=== PATIENT | female | born 1985 | race Caucasian/White ===

== ENCOUNTER 2016-11-15 17:58 | Emergency (ER) | payer MEDICAID ==
[~2016-11-15] VITALS: Ht 160 cm; Wt 90.5 kg
[~2016-11-15 17:58] MED LIST: PREN1CAP7 PO
[2016-11-15 17:59] VITALS: BP 136/75; PULSE 103; RESP 20; TEMP 99.5; O2SAT 97
--- NOTE | 2016-11-15 18:34 | PD ---
HPI Chief Complaint: Skin Problem Time Seen by Provider: 18:34 Travel History International Travel<30 days: No Contact w/Intl Traveler<30days: No Traveled to known affect area: No History of Present Illness HPI 31-year-old female 28 weeks presents to the emergency department for evaluation of right hand injury. Patient states that this morning while washing dishes her drain became clogged so she reached her hand into the water to try to unclog the drain and states that she was poked by something sharp in the right third finger. States that she thinks it was the sharp end of a steak knife. States that throughout the day today the pain has worsened and she has had worsening swelling in the third finger now extending to the hand and wrist. States that she has redness with warmth extending from the finger to the forearm. She denies any fever, chills, nausea, vomiting. States that she has had no vaginal bleeding or abdominal pain, states baby has had normal movement. Unknown last tetanus vaccination. No other complaints. PFSH Past Medical History Arthritis: Yes (RA) Asthma: Yes Autoimmune Disease: Yes (LUPUS) Diminished Hearing: No Immune Disorder: Yes (LUPUS) Musculoskeletal: Yes (ARTHROSCOPIC KNEE SURGERY) Reproductive: Yes (6CMx2.4X2.6 UTERUS LYOMA) Tetanus Vaccination: Unknown ?: LMP: 28 weeks : 6 Para: 2 Miscarriage: 3 : 1 Past Surgical History Abdominal Surgery: Yes Section: Yes (x5) Gynecologic Surgery: Yes Pacemaker: No Other Surgery: Yes Social History Alcohol Use: No Tobacco Use: No Substance Use: No Allergies-Medications (Allergen,Severity, Reaction): Coded Allergies: Ancef (Verified Allergy, Severe, 11/15/16) Clindamycin (Verified Allergy, Severe, Swelling, 11/15/16) Iodine (Verified Allergy, Severe, 11/15/16) Tramadol (Verified Allergy, Severe, RASH/HIVES, 11/15/16) Cipro (Verified Allergy, Intermediate, Swelling, 11/15/16) *MDRO Multi-Drug Resistant Organism (Verified Allergy, Unknown, 11/15/16) MRSA Rocephin (Verified Allergy, Unknown, 11/15/16) Prednisone (Verified Adverse Reaction, Intermediate, INCREASED HEART RATE AND BLOOD PRESSURE., 11/15/16) Reported Meds & Prescriptions Reported Meds & Active Scripts Active Citranatal [place] ( W/O Vit A W/ Fe Fumar) 27-1-260 Mg Cap 1 Cap PO DAILY Review of Systems Except as stated in HPI: all other systems reviewed are Neg Physical Exam Narrative GENERAL: Well-nourished and well-developed male patient in no acute distress who is nontoxic appearing. SKIN: Warm and dry. HEAD: Normocephalic and atraumatic. EYES: No injection, drainage, or hyphema noted. PERRLA. EOMI. ENT: No nasal drainage noted. Oropharynx is clear. NECK: Supple and the trachea is midline. CARDIOVASCULAR: Regular rate and rhythm. RESPIRATORY: Breath sounds are equal bilaterally with no accessory muscle use, wheezing, rhonchi, or crackles. GASTROINTESTINAL: Abdomen is soft, non-tender, and nondistended. EXTREMITY: Right hand third finger with pinpoint puncture wound to volar aspect just distal to PIP. There is mild erythema and swelling of the finger with tenderness to palpation. No red streaks. Full range of motion in all joints. No joint swelling/injury. Normal opposition of thumb. Distal extremity neurovascularly intact with intact two point discrimination. NEUROLOGICAL: Awake, alert, and oriented. Normal speech and gait. Cranial nerves are grossly intact. Data Data Last Documented VS Vital Signs Date Time Temp Pulse Resp B/P Pulse Ox O2 Delivery O2 Flow Rate FiO2 11/15/16 17:59 99.5 103 20 136/75 97 Room Air Orders Basic Metabolic Panel (Bmp) (11/15/16 18:32) Complete Blood Count With Diff (11/15/16 18:32) Iv Access Insert/Monitor (11/15/16 18:32) Acetaminophen (Tylenol) (11/15/16 18:45) Tetanus/Diphtheria Tox Adult (Tetanus/Di (11/15/16 18:45) Hand, Complete ([id number]) (11/15/16 18:34) Sulfamet-Trimeth Ds 800-160 Mg (Bactrim (11/15/16 20:00) Potassium Chloride Eff (K-Lyte Cl Eff) (11/15/16 20:15) Labs Laboratory Tests Test 11/15/16 18:40 White Blood Count 16.9 TH/MM3 Red Blood Count 3.81 MIL/MM3 Hemoglobin 10.1 GM/DL Hematocrit 31.2 % Mean Corpuscular Volume 82.0 FL Mean Corpuscular Hemoglobin 26.6 PG Mean Corpuscular Hemoglobin 32.4 % Concent Red Cell Distribution Width 14.2 % Platelet Count 250 TH/MM3 Mean Platelet Volume 8.6 FL Neutrophils (%) (Auto) 80.6 % Lymphocytes (%) (Auto) 13.3 % Monocytes (%) (Auto) 5.2 % Eosinophils (%) (Auto) 0.7 % Basophils (%) (Auto) 0.2 % Neutrophils # (Auto) 13.6 TH/MM3 Lymphocytes # (Auto) 2.2 TH/MM3 Monocytes # (Auto) 0.9 TH/MM3 Eosinophils # (Auto) 0.1 TH/MM3 Basophils # (Auto) 0.0 TH/MM3 CBC Comment DIFF FINAL Differential Comment Sodium Level 140 MEQ/L Potassium Level 3.2 MEQ/L Chloride Level 107 MEQ/L Carbon Dioxide Level 26.5 MEQ/L Anion Gap 7 MEQ/L Blood Urea Nitrogen 6 MG/DL Creatinine 0.47 MG/DL Estimat Glomerular Filtration 156 ML/MIN Rate Random Glucose 94 MG/DL Calcium Level 7.9 MG/DL MDM Medical Decision Making Medical Screen Exam Complete: Yes Emergency Medical Condition: Yes Differential Diagnosis Abrasion versus cellulitis versus puncture wound Narrative Course 31-year-old female who is 28 weeks presents to the emergency department for evaluation of right hand third finger injury with swelling and pain. Patient has temperature of 99.5F. She is tachycardic with a heart rate of 103 bpm. The finger is slightly swollen and erythematous extending to over the dorsal aspect of the hand but there is no lymphangitis or joint involvement. X-ray imaging as an ordered to rule out foreign body retention. Labs have been ordered. Patient administered Tylenol for pain. CBC shows an elevated white blood cell count 16.9, mild anemia with hemoglobin 10.1, hematocrit 31.2. BMP shows mild hypokalemia with a potassium of 3.2. X-ray of the right hand is negative for any acute abnormalities. Patient remained stable and without complaint while here in the emergency department. She'll be discharged with a prescription for Bactrim. Discussed that if her symptoms worsen she should return immediately to the emergency department. Patient verbalizes understanding and agreement with treatment plan. I discussed the case with my attending physician Dr. Turner who is aware of the patients history, physical examination findings, and treatment plan. Physician Communication Physician Communication I spoke with Dr. Chowdhury OB hospitalist on-call regarding the patient's presentation and her multiple drug allergies. She recommends the patient be prescribed Bactrim as it is only category C at this point in her . Diagnosis Primary Impression: Cellulitis Qualified Code: L03.011 - Cellulitis of finger of right hand Referrals: [facility] Patient Instructions: Cellulitis (ED), General Instructions Additional Instructions: Take medication as prescribed with food and a full glass of water. Follow-up with your PLASTICS AND COMPOSITES INSPECTOR/primary care provider. Return to the ED for any acute worsening of symptoms such as worsening swelling , redness, pain or fever. Med/Other Pt SpecificInfo: Prescription(s) given Disposition: 01 DISCHARGE HOME Condition: Stable Rosie Gill Nov 15, 2016 18:34
[2016-11-15] MEDS ORDERED: ACETAMINOPHEN 325 MG TAB PO ONE (18:45)
[2016-11-15] MEDS ORDERED: TETANUS/DIPHTHERIA TOXOID ADULT 0.5 ML VIAL IM ONE (18:45)
[2016-11-15 18:59] LABS: AUTOMATED NEUTROPHIL # 13.6 TH/MM3 (1.8-7.7); BASOPHIL % 0.2 % (0.0-2.0); EOSINOPHIL # 0.1 TH/MM3 (0-0.4); EOSINOPHIL % 0.7 % (0.0-4.0); HEMATOCRIT 31.2 % (35.0-46.0); HEMO FLAGS DIFF FINAL; LYMPH % 13.3 % (9.0-44.0); LYMPHOCYTE # 2.2 TH/MM3 (1.0-4.8); MEAN CORPUSCULAR HEMOGLOBIN 26.6 PG (27.0-34.0); MEAN CORPUSCULAR HGB CONC 32.4 % (32.0-36.0); MONO % 5.2 % (0.0-8.0); NEUT % 80.6 % (16.0-70.0); PLATELET COUNT 250 TH/MM3 (150-450); RED BLOOD COUNT 3.81 MIL/MM3 (4.00-5.30); RED CELL DISTRIBUTION WIDTH 14.2 % (11.6-17.2); WHITE BLOOD COUNT 16.9 TH/MM3 (4.0-11.0)
--- NOTE | 2016-11-15 19:13 | RADRPT ---
EXAM DATE/TIME: 11/15/2016 19:02 [facility] COMPARISON: No previous studies available for comparison. INDICATIONS : Right hand pain and swelling after cutting self with knife while doing dishes this morning. MEDICAL HISTORY : None. SURGICAL HISTORY : None. ENCOUNTER: Initial ACUITY: 1 day PAIN SCORE: 10/10 LOCATION: Right Hand. FINDINGS: No definite fractures, or dislocations are identified. No definite lytic or sclerotic lesion is seen . There is no evidence for a radiopaque foreign body for technique. CONCLUSION: Unremarkable study. Emely Don MD on November 15, 2016 at 19:11 Board Certified Radiologist. This report was verified electronically.
[2016-11-15 19:22] LABS: BICARBONATE 26.5 MEQ/L (21.0-32.0); POTASSIUM 3.2 MEQ/L (3.5-5.1)
[2016-11-15] MEDS ORDERED: SULFAMETHOXAZOLE-TRIMETHOPRIM DS 800-160 MG TAB PO ONE (20:00)
[2016-11-15] MEDS ORDERED: BACT800T5 PO (20:07)
[2016-11-15] MEDS ORDERED: POTASSIUM CHLORIDE 25 MEQ EFFERVESCENT TAB PO ONE (20:15)
[2016-12-05] MEDS ORDERED: ZANT150T2 PO (14:18)
== END 2016-11-15 20:53 | disposition home or self-care (01) ==
LOC: NEPC 17:58
DX: L03.011 Cellulitis of right finger (principal)
CPT/HCPCS: 73130; 80048; 85025; 99283

== ENCOUNTER 2016-11-20 20:47 | Emergency (ER) | payer MEDICAID ==
[~2016-11-20 20:47] MED LIST changes: +BACT800T5 PO
--- NOTE | 2016-11-20 21:43 | PD ---
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 Patient wanted to go to the main ER she started having chest pain associated with coughing and a low-grade fever. Symptoms have been present since Monday ,she is taken Tylenol. She states some decreased movement today so she was brought up for assessment before going to the main ed. No complications in the and her lupus is in remission at present time. Denies vaginal bleeding contractions or vaginal discharge. Para: 5 : 8 Miscarriage: 1 : 1 History Past Medical History Narrative Medical Lupus in remission Asthma under good control on albuterol Rheumatoid arthritis Obstetric History Obstetric History section 5, 2 prior classical sections History of twin Past Surgical History Narrative Surgical section Knee surgery Social History Alcohol Use: No Tobacco Use: No Substance Abuse: No Allergies-Medications (Allergen,Severity, Reaction): Coded Allergies: Ancef (Verified Allergy, Severe, 11/15/16) Clindamycin (Verified Allergy, Severe, Swelling, 11/15/16) Iodine (Verified Allergy, Severe, 11/15/16) Tramadol (Verified Allergy, Severe, RASH/HIVES, 11/15/16) Cipro (Verified Allergy, Intermediate, Swelling, 11/15/16) *MDRO Multi-Drug Resistant Organism (Verified Allergy, Unknown, 11/15/16) MRSA Rocephin (Verified Allergy, Unknown, 11/15/16) Prednisone (Verified Adverse Reaction, Intermediate, INCREASED HEART RATE AND BLOOD PRESSURE., 11/15/16) Home Meds Active Scripts Sulfamethoxazole-Trimethoprim (Bactrim DS)800-160 Mg Tab1 Tab PO BID #20 TAB Ref 0 Prov:Brad Turner MD 11/15/16 W/O Vit A W/ Fe Fumar (Citranatal [place])27-1-260 Mg Cap1 Cap PO DAILY #60 CAP Ref 3 Prov:Luz Elena Mcmanus CNM DESIGN ENGINEER [employer]MENT 11/03/16 Review of Systems General / Constitutional: Fever, Chills Cardiovascular: Chest Pain or Discomfort Respiratory: Cough Gastrointestinal: Nausea Physical Exam Narrative GENERAL: Well-nourished, well-developed patient. SKIN: Warm and dry. HEAD: Normocephalic and atraumatic. EYES: No scleral icterus. No injection or drainage. ENT: No nasal drainage noted. Mucous membranes pink. Airway patent. NECK: Supple, trachea midline. No JVD. CARDIOVASCULAR: Regular rate and rhythm without murmurs, gallops, or rubs. RESPIRATORY: Breath sounds equal bilaterally. No accessory muscle use. BREASTS: Bilateral exam showed no masses , no retractions, no nipple discharge. ABDOMEN/GI: Abdomen soft, non-tender, bowel sounds present, no rebound, no guarding Gravid to [-] weeks size Fundal Height: [-30] GENITOURINARY: Exam deferred Uterine Contractions: [Absent-] FHT's: Category: [1-] Baseline: 140 Reactive: Moderate Variability: Moderate Decels: Absent EXTREMITIES: No cyanosis or edema. BACK: Nontender without obvious deformity. No CVA tenderness. NEUROLOGICAL: Awake and alert. Motor and sensory grossly within normal limits. Five out of 5 muscle strength in all muscle groups. Normal speech. Data Data Vital Signs Reviewed: Yes MDM Plan 31-year-old female at 29 weeks gestation with complaints of decreased movement. Normal nonstress test with good movement since patient has arrived here. Respiratory symptoms with chest pain and coughing, patient would like further evaluation. Lungs appear to be clear to auscultation here with normal vital signs and 99% saturation We'll transfer to the main ED for continued evaluation Diagnosis Diagnosis: Primary Impression: Cough Additional Impressions: Chest discomfort Decreased movement affecting management of in third trimester 29 weeks gestation of Lupus anticoagulant affecting in third trimester, antepartum Maternal rheumatoid arthritis complicating Condition: Corrina Mojica MD Nov 20, 2016 21:42
[2016-11-20] MEDS ORDERED: ALBUAER3 INH (22:13)
[2016-12-05] MEDS ORDERED: ZANT150T2 PO (14:18)
== END 2016-11-21 | disposition home or self-care (01) ==
LOC: HOBED 20:47
DX: O99.513 Diseases of the respiratory system complicating pregnancy, third trimester (principal); R05 Cough; O36.8130 Decreased fetal movements, third trimester, not applicable or unspecified; O99.113 Other diseases of the blood and blood-forming organs and certain disorders involving the immune mechanism complicating pregnancy, third trimester; D68.62 Lupus anticoagulant syndrome; O99.89 Other specified diseases and conditions complicating pregnancy, childbirth and the puerperium; M06.9 Rheumatoid arthritis, unspecified; Z3A.29 29 weeks gestation of pregnancy
CPT/HCPCS: 99284

== ENCOUNTER 2016-12-19 14:09 | Emergency (ER) | payer MEDICAID ==
[~2016-12-19] VITALS: Ht 160 cm; Wt 93.0 kg
[~2016-12-19 14:09] MED LIST changes: +ALBUAER3 INH; -BACT800T5 PO; +ZANT150T2 PO
[2016-12-19 14:11] VITALS: BP 123/71; PULSE 106; RESP 17; TEMP 98.6; O2SAT 97
--- NOTE | 2016-12-19 14:21 | PD ---
Physical Exam Time Seen by Provider: 14:15 Narrative 31yo, 32 weeks , F c/o chest pain x1 week with cough, SOB, feeling of drowning when she lays down. Hx of asthma and albuterol not working. Excessive mucous production. Throwing up blood last night. Reports fever at beginning of illness, not recent illness. Reports abd cramping only when she coughs. Denies vag bleeding. Baby is moving normally. Called OB and said clear medically. Patient stable. Patient seen in triage. Awaiting bed placement. Data Data Last Documented VS Vital Signs Date Time Temp Pulse Resp B/P Pulse Ox O2 Delivery O2 Flow Rate FiO2 12/19/16 14:11 98.6 106 17 123/71 97 MDM Supervised Visit with VINCENT: Rosie Boston Dec 19, 2016 14:21
[2016-12-19] MEDS ORDERED: SODIUM CHLOR 0.9% 1000 ML INJ 1,000 ML IV ONE (15:00)
[2016-12-19] MEDS ORDERED: ONDANSETRON HCL 4 MG/2 ML VIAL IVP ONE (15:00)
[2016-12-19] MEDS ORDERED: methylPREDNISolone SOD SUCC 125 MG/2 ML VIAL IVP ONE (15:00)
[2016-12-19] MEDS ORDERED: SODIUM CHLORIDE 0.9% FLUSH 10 ML FLUSH IVF PRN (15:00)
[2016-12-19] MEDS ORDERED: METOCLOPRAMIDE HCL 10 MG/2 ML VIAL IV PUSH ONE (15:45)
[2016-12-19 15:49] LABS: AUTOMATED NEUTROPHIL # 8.4 TH/MM3 (1.8-7.7); BASOPHIL % 0.4 % (0.0-2.0); EOSINOPHIL # 0.1 TH/MM3 (0-0.4); EOSINOPHIL % 0.7 % (0.0-4.0); HEMATOCRIT 33.1 % (35.0-46.0); HEMO FLAGS DIFF FINAL; LYMPH % 18.5 % (9.0-44.0); LYMPHOCYTE # 2.1 TH/MM3 (1.0-4.8); MEAN CELL VOLUME 79.8 FL (80.0-100.0); MEAN CORPUSCULAR HEMOGLOBIN 26.5 PG (27.0-34.0); MEAN CORPUSCULAR HGB CONC 33.2 % (32.0-36.0); MONO % 6.3 % (0.0-8.0); NEUT % 74.1 % (16.0-70.0); PLATELET COUNT 265 TH/MM3 (150-450); RED BLOOD COUNT 4.15 MIL/MM3 (4.00-5.30); RED CELL DISTRIBUTION WIDTH 14.3 % (11.6-17.2); WHITE BLOOD COUNT 11.3 TH/MM3 (4.0-11.0)
--- NOTE | 2016-12-19 16:04 | PD ---
HPI Chief Complaint: Cold / Flu Symptoms Time Seen by Provider: 15:00 Travel History International Travel<30 days: No Contact w/Intl Traveler<30days: No Traveled to known affect area: No History of Present Illness HPI Patient is a 31-year-old female presenting to the emergency room for evaluation of chest congestion, posttussive emesis, green clear sputum. Patient reports a history of asthma, she denies any fevers, chills, headache, chest pain, abdominal pain, diarrhea. Patient is 33 weeks , she's had no vaginal bleeding, abdominal cramping, urinary complaints. Patient can feel her baby moving. Has been utilizing her albuterol inhaler and taking cough medicine over -the-counter. She states that she stopped all of this last night because it wasn't helping and decided to come to emergency department today. PFSH Past Medical History Medical History: Denies Significant Hx Arthritis: Yes (RA) Asthma: Yes Autoimmune Disease: Yes (LUPUS) Diminished Hearing: No Immune Disorder: Yes (LUPUS) Musculoskeletal: Yes (ARTHROSCOPIC KNEE SURGERY) Reproductive: Yes (6CMx2.4X2.6 UTERUS LYOMA) ?: : 7 Para: 6 Miscarriage: 3 : 1 Past Surgical History Abdominal Surgery: Yes Section: Yes (x5) Gynecologic Surgery: Yes Pacemaker: No Other Surgery: Yes Social History Alcohol Use: No Tobacco Use: No Substance Use: No Allergies-Medications (Allergen,Severity, Reaction): Coded Allergies: Ancef (Verified Allergy, Severe, 12/19/16) Clindamycin (Verified Allergy, Severe, Swelling, 12/19/16) Iodine (Verified Allergy, Severe, 12/19/16) Tramadol (Verified Allergy, Severe, RASH/HIVES, 12/19/16) Cipro (Verified Allergy, Intermediate, Swelling, 12/19/16) *MDRO Multi-Drug Resistant Organism (Verified Allergy, Unknown, 12/19/16) MRSA Rocephin (Verified Allergy, Unknown, 12/19/16) Prednisone (Verified Adverse Reaction, Intermediate, INCREASED HEART RATE AND BLOOD PRESSURE., 12/19/16) Reported Meds & Prescriptions Reported Meds & Active Scripts Active Zantac (Ranitidine HCl) 150 Mg Tab 150 Mg PO BID Citranatal [place] ( W/O Vit A W/ Fe Fumar) 27-1-260 Mg Cap 1 Cap PO DAILY Reported Proair Hfa 8.5 GM Inh (Albuterol Sulfate) 90 Mcg/Act Aer 2 Puff INH Q4-6H PRN 108 mcg/actuation Review of Systems Except as stated in HPI: all other systems reviewed are Neg General / Constitutional: No: Fever, Chills Respiratory: Positive: Cough, Shortness of Breath, Wheezing Gastrointestinal: Positive: Nausea, Vomiting, No: Abdominal Pain Genitourinary: No: Pelvic Pain, Discharge, Vaginal Bleeding Physical Exam Narrative GENERAL: Well developed, well-nourished, alert female. Resting comfortably in no acute distress. SKIN: Focused skin assessment warm/dry. HEAD: Atraumatic. Normocephalic. EYES: Pupils equal and round. No scleral icterus. No injection or drainage. ENT: No nasal bleeding or discharge. Mucous membranes pink and moist. NECK: Trachea midline. No JVD. CARDIOVASCULAR: Regular rate and rhythm. No murmur appreciated. RESPIRATORY: No accessory muscle use. Breath sounds significantly diminished in bases, wheezing and upper lung dennis. GASTROINTESTINAL: Abdomen soft, non-tender, nondistended. Hepatic and splenic margins not palpable. MUSCULOSKELETAL: No obvious deformities. No clubbing. No cyanosis. No edema. NEUROLOGICAL: Awake and alert. No obvious cranial nerve deficits. Motor grossly within normal limits. Normal speech. PSYCHIATRIC: Appropriate mood and affect; insight and judgment normal. Data Data Last Documented VS Vital Signs Date Time Temp Pulse Resp B/P Pulse Ox O2 Delivery O2 Flow Rate FiO2 12/19/16 16:43 Room Air 12/19/16 16:42 99.1 93 16 109/61 100 12/19/16 16:07 21 Orders Complete Blood Count With Diff (12/19/16 14:58) Comprehensive Metabolic Panel (12/19/16 14:58) Ecg Monitoring (12/19/16 14:58) Iv Access Insert/Monitor (12/19/16 14:58) Oximetry (12/19/16 14:58) Oxygen Administration (12/19/16 14:58) Methylprednisolone So Succ Inj (Solumedr (12/19/16 15:00) Ondansetron Inj (Zofran Inj) (12/19/16 15:00) Albuterol-Ipratropium Neb (Duoneb Neb) (12/19/16 15:00) Sodium Chloride 0.9% Flush (Ns Flush) (12/19/16 15:00) Sodium Chlor 0.9% 1000 Ml Inj (Ns 1000 M (12/19/16 15:00) Metoclopramide Inj (Reglan Inj) (12/19/16 15:45) Azithromycin (Zithromax) (12/19/16 17:15) Labs Laboratory Tests Test 12/19/16 15:20 White Blood Count 11.3 TH/MM3 Red Blood Count 4.15 MIL/MM3 Hemoglobin 11.0 GM/DL Hematocrit 33.1 % Mean Corpuscular Volume 79.8 FL Mean Corpuscular Hemoglobin 26.5 PG Mean Corpuscular Hemoglobin 33.2 % Concent Red Cell Distribution Width 14.3 % Platelet Count 265 TH/MM3 Mean Platelet Volume 9.3 FL Neutrophils (%) (Auto) 74.1 % Lymphocytes (%) (Auto) 18.5 % Monocytes (%) (Auto) 6.3 % Eosinophils (%) (Auto) 0.7 % Basophils (%) (Auto) 0.4 % Neutrophils # (Auto) 8.4 TH/MM3 Lymphocytes # (Auto) 2.1 TH/MM3 Monocytes # (Auto) 0.7 TH/MM3 Eosinophils # (Auto) 0.1 TH/MM3 Basophils # (Auto) 0.0 TH/MM3 CBC Comment DIFF FINAL Differential Comment Sodium Level 137 MEQ/L Potassium Level 3.7 MEQ/L Chloride Level 105 MEQ/L Carbon Dioxide Level 24.7 MEQ/L Anion Gap 7 MEQ/L Blood Urea Nitrogen 5 MG/DL Creatinine 0.53 MG/DL Estimat Glomerular Filtration 135 ML/MIN Rate Random Glucose 67 MG/DL Calcium Level 8.0 MG/DL Total Bilirubin 0.3 MG/DL Aspartate Amino Transf 27 U/L (AST/SGOT) Alanine Aminotransferase 12 U/L (ALT/SGPT) Alkaline Phosphatase 108 U/L Total Protein 7.0 GM/DL Albumin 2.7 GM/DL MDM Medical Decision Making Medical Screen Exam Complete: Yes Emergency Medical Condition: Yes Interpretation(s) Viral URI versus asthma exacerbation versus bronchitis versus pneumonia versus other Differential Diagnosis Patient's a 31-year-old female presenting to emergency evaluation of cough and chest congestion 1 week. Patient has a history of asthma and has been utilizing an albuterol inhaler. On presentation her vital signs are stable, she is mildly tachycardic with a rate of 105. Labs ordered and pending. Patient has a documented allergy to prednisone however when questioned she states that she has had Solu-Medrol and has had a reaction to it. DuoNeb 3, Solu-Medrol ordered. Patient will be started on antibiotics empirically. She was given nausea medication. Narrative Course Patient is a 31-year-old female presenting to the emergency department for evaluation of upper respiratory symptoms week. Patient's vital signs are stable , labs ordered and pending, medications ordered and pending. Patient is currently with no related complaints today. Deferred chest x-ray due to . Patient had listed prednisone as an allergy, she has had no reaction to Solu-Medrol in the emergency department today she was given 3 DuoNeb treatments and reports improvement in her breathing. CBC is unremarkable, chemistries unremarkable. Patient will be discharged home with antibiotics as well as DuoNeb nebulizer treatments. He is advised to follow-up with her primary doctor as well as her AGRICULTURAL AGENT. She is advised to return to emergency department immediately for any new or worsening symptoms. Patient verbalized understanding of these instructions. Patient is stable for discharge. Diagnosis Primary Impression: Acute asthma exacerbation Qualified Code: J45.901 - Asthma with acute exacerbation, unspecified asthma severity Referrals: Plant Production Worker Primary Care Physician Patient Instructions: Asthma (ED), General Instructions Additional Instructions: Follow-up with your primary doctor and machine taper Take medications as directed Returned to emergency department for any new or worsening symptoms Med/Other Pt SpecificInfo: Prescription(s) given Scripts Ipratropium-Albuterol Neb (Duoneb)0.5-2.5 Mg/3 Ml Neb1 Nebule INH Q4HR NEB PRN ( SOB/WHEEZING) 10 Days Ref 0 Prov:Josette Chavarria 12/19/16 Azithromycin 250 Mg [id number] Mg PO DAILY 4 Days Ref 0 Prov:Josette Chavarria 12/19/16 Disposition: 01 DISCHARGE HOME Condition: Stable Josette Chavarria Dec 19, 2016 16:04
[2016-12-19 16:07] VITALS: O2SAT 100
[2016-12-19] MEDS: RESP: ALBUTEROL 2.5 MG/IPRATROPIUM 0.5 MG NEB (SCH) INH (16:11)
[2016-12-19 16:23] LABS: ALKALINE PHOSPHATASE 108 U/L (45-117); ALT (GPT) 12 U/L (10-53); ANION GAP 7 MEQ/L (5-15); AST (GOT) 27 U/L (15-37); BICARBONATE 24.7 MEQ/L (21.0-32.0); BLOOD UREA NITROGEN 5 MG/DL (7-18); CHLORIDE 105 MEQ/L (98-107); GLOMERULAR FILTRATION RATE 135 ML/MIN (>89); POTASSIUM 3.7 MEQ/L (3.5-5.1); SODIUM (NA) 137 MEQ/L (136-145); TOTAL BILIRUBIN ADULT 0.3 MG/DL (0.2-1.0)
[2016-12-19 16:35] VITALS: O2SAT 97
[2016-12-19 16:42] VITALS: BP 109/61; PULSE 93; RESP 16; TEMP 99.1; O2SAT 100
--- NOTE | 2016-12-19 16:45 | PD ---
Data Data Last Documented VS Vital Signs Date Time Temp Pulse Resp B/P Pulse Ox O2 Delivery O2 Flow Rate FiO2 12/19/16 16:42 99.1 93 16 109/61 100 Room Air 12/19/16 16:07 21 Orders Complete Blood Count With Diff (12/19/16 14:58) Comprehensive Metabolic Panel (12/19/16 14:58) Ecg Monitoring (12/19/16 14:58) Iv Access Insert/Monitor (12/19/16 14:58) Oximetry (12/19/16 14:58) Oxygen Administration (12/19/16 14:58) Methylprednisolone So Succ Inj (Solumedr (12/19/16 15:00) Ondansetron Inj (Zofran Inj) (12/19/16 15:00) Albuterol-Ipratropium Neb (Duoneb Neb) (12/19/16 15:00) Sodium Chloride 0.9% Flush (Ns Flush) (12/19/16 15:00) Sodium Chlor 0.9% 1000 Ml Inj (Ns 1000 M (12/19/16 15:00) Metoclopramide Inj (Reglan Inj) (12/19/16 15:45) Labs Laboratory Tests Test 12/19/16 15:20 White Blood Count 11.3 TH/MM3 Red Blood Count 4.15 MIL/MM3 Hemoglobin 11.0 GM/DL Hematocrit 33.1 % Mean Corpuscular Volume 79.8 FL Mean Corpuscular Hemoglobin 26.5 PG Mean Corpuscular Hemoglobin 33.2 % Concent Red Cell Distribution Width 14.3 % Platelet Count 265 TH/MM3 Mean Platelet Volume 9.3 FL Neutrophils (%) (Auto) 74.1 % Lymphocytes (%) (Auto) 18.5 % Monocytes (%) (Auto) 6.3 % Eosinophils (%) (Auto) 0.7 % Basophils (%) (Auto) 0.4 % Neutrophils # (Auto) 8.4 TH/MM3 Lymphocytes # (Auto) 2.1 TH/MM3 Monocytes # (Auto) 0.7 TH/MM3 Eosinophils # (Auto) 0.1 TH/MM3 Basophils # (Auto) 0.0 TH/MM3 CBC Comment DIFF FINAL Differential Comment Sodium Level 137 MEQ/L Potassium Level 3.7 MEQ/L Chloride Level 105 MEQ/L Carbon Dioxide Level 24.7 MEQ/L Anion Gap 7 MEQ/L Blood Urea Nitrogen 5 MG/DL Creatinine 0.53 MG/DL Estimat Glomerular Filtration 135 ML/MIN Rate Random Glucose 67 MG/DL Calcium Level 8.0 MG/DL Total Bilirubin 0.3 MG/DL Aspartate Amino Transf 27 U/L (AST/SGOT) Alanine Aminotransferase 12 U/L (ALT/SGPT) Alkaline Phosphatase 108 U/L Total Protein 7.0 GM/DL Albumin 2.7 GM/DL MDM Supervised Visit with VINCENT: Yes Narrative Course The history, exam, and medical decision-making in the associated mid-level provider note were completed with my assistance. I reviewed and agree with the findings presented. I attest that I had a [id number] encounter with the patient on the same day, and personally performed and documented my assessment and findings in the medical record. *My assessment and Findings: 31-year-old woman, 33 weeks , URI symptoms for the past week. History of asthma. Looks well. She does a lot of wheezing but she has some shallow breathing. I don't see any evidence of lower [place] edema or DVT. No symptoms strongly suggestive of PE. She looks well. She does have some tightness. We'll treat for asthma exacerbation. She's had some adverse reaction to prednisone in the past with tachycardia and cardiac symptoms. She does well with the Solu-Medrol. We'll discharge her on Decadron. Recommend close follow-up with her OB. Yayo Vasquez MD Dec 19, 2016 16:45
[2016-12-19] MEDS ORDERED: AZITHROMYCIN 250 MG TAB PO ONE (17:15)
[2016-12-19] MEDS ORDERED: IPRASOL INH (17:19)
[2016-12-19] MEDS ORDERED: AZIT250T3 PO (17:19)
== END 2016-12-19 17:49 | disposition home or self-care (01) ==
LOC: NEPD 14:09
DX: O26.93 Pregnancy related conditions, unspecified, third trimester (principal); J45.901 Unspecified asthma with (acute) exacerbation; Z3A.33 33 weeks gestation of pregnancy; M06.9 Rheumatoid arthritis, unspecified
CPT/HCPCS: 80053; 85025; 94640; 94664; 96361; 96374; 96375; 99283; J2405; J2765; J2930; J7030

== ENCOUNTER 2017-01-15 23:08 | Emergency (ER) | payer MEDICAID ==
[~2017-01-15 23:08] MED LIST changes: +AZIT250T3 PO; +IPRASOL INH
[2017-01-16 00:20] LABS: BLOOD, URINE NEG (NEG); CALCIUM OXALATE CRYSTALS,URINE OCC /hpf; COMMENT (UR) CULT NOT INDICATED; CULTURE IF INDICATED CULT NOT INDICATED; GLUCOSE,URINE NEG (NEG); KETONE, URINE NEG (NEG); MUCUS URINE FEW /lpf (OCC); NITRITE,URINE NEG (NEG); SQUAMOUS EPITHELIAL CELL URINE <1 /hpf (0-5); URINE COLOR YELLOW (YELLW/STRAW)
--- NOTE | 2017-01-16 00:39 | PD ---
HPI Chief Complaint contractions Date Seen: January 16, 2017 Travel History International Travel<30 Days: No Contact w/Intl Traveler<30Days: No Known Affected Area: No History of Present Illness HPI This is a 31y/o at 36w4d who presents to the [facility] with c/o contractions since 9pm. She denies vaginal bleeding or leakage of fluid with reports of active movements. care with [facility], records reviewed, complicated by: 1. late entry to care at 26w 2. h/o 5 previous c/s (1st TIUP) 3. h/o Lupus, in "remission" 4. Asthma, recent prednisone use 2 weeks ago 5. young multigravida, has not signed state tubal consent form Para: 6 : 8 History Past Medical History Narrative Medical h/o Lupus in remission Asthma, recent prednisone use Obstetric History Obstetric History 5 previous c/s 1st c/s for TIUP Family History Family History: Negative Social History Alcohol Use: No Tobacco Use: No Substance Abuse: No Allergies-Medications (Allergen,Severity, Reaction): Coded Allergies: Ancef (Verified Allergy, Severe, 12/19/16) Clindamycin (Verified Allergy, Severe, Swelling, 12/19/16) Iodine (Verified Allergy, Severe, 12/19/16) Tramadol (Verified Allergy, Severe, RASH/HIVES, 12/19/16) Cipro (Verified Allergy, Intermediate, Swelling, 12/19/16) *MDRO Multi-Drug Resistant Organism (Verified Allergy, Unknown, 12/19/16) MRSA Rocephin (Verified Allergy, Unknown, 12/19/16) Prednisone (Verified Adverse Reaction, Intermediate, INCREASED HEART RATE AND BLOOD PRESSURE., 12/19/16) Home Meds Active Scripts Ipratropium-Albuterol Neb (Duoneb)0.5-2.5 Mg/3 Ml Neb1 Nebule INH Q4HR NEB PRN ( SOB/WHEEZING) 10 Days Ref 0 Prov:Josette Chavarria 12/19/16 Azithromycin 250 Mg [id number] Mg PO DAILY 4 Days Ref 0 Prov:Josette Chavarria 12/19/16 Ranitidine (Zantac)150 Mg [id number] Mg PO BID #60 TAB Ref 5 Prov:Yoana Reyes 12/05/16 W/O Vit A W/ Fe Fumar (Citranatal [place])27-1-260 Mg Cap1 Cap PO DAILY #60 CAP Ref 3 Prov:Luz Elena Mcmanus CNM ASSOCIATE EDITOR 11/03/16 Reported Medications Albuterol 8.5 GM Inh (Proair Hfa 8.5 GM Inh)90 Mcg/Act Aer2 Puff INH Q4-6H PRN ( SHORTNESS OF BREATH) #1 INHALER Ref 0 108 mcg/actuation 11/20/16 Review of Systems Except as stated in HPI: all other systems reviewed are Neg Physical Exam Narrative GENERAL: Well-nourished, well-developed patient. SKIN: Warm and dry. HEAD: Normocephalic and atraumatic. EYES: No scleral icterus. No injection or drainage. ENT: No nasal drainage noted. Mucous membranes pink. Airway patent. NECK: Supple, trachea midline. No JVD. CARDIOVASCULAR: Regular rate and rhythm without murmurs, gallops, or rubs. RESPIRATORY: Breath sounds equal bilaterally. No accessory muscle use. BREASTS: Bilateral exam showed no masses , no retractions, no nipple discharge. ABDOMEN/GI: Abdomen soft, non-tender, bowel sounds present, no rebound, no guarding Gravid to 38 weeks size GENITOURINARY: External Genitalia: intact and normal in appearance Cervix: c/s/p Uterine Contractions: few FHT's: Category: 1 EXTREMITIES: No cyanosis or edema. BACK: Nontender without obvious deformity. No CVA tenderness. NEUROLOGICAL: Awake and alert. Motor and sensory grossly within normal limits. Five out of 5 muscle strength in all muscle groups. Normal speech. Data Data Vital Signs Reviewed: Yes Orders Vital Signs (Adult) .ON ADMISSION (01/16/17 00:03) ^ Labor Status (01/16/17 00:03) Urinalysis - C+S If Indicated (01/16/17 00:03) ^ Non Stress Test (01/16/17 00:03) Labs Laboratory Tests Test 01/15/17 23:30 Urine Color YELLOW Urine Turbidity CLEAR Urine pH 7.0 Urine Specific [place] 1.021 Urine Protein TRACE Urine Glucose (UA) NEG Urine Ketones NEG Urine Occult Blood NEG Urine Nitrite NEG Urine Bilirubin NEG Urine Urobilinogen LESS THAN 2.0 Urine Leukocyte Esterase NEG Urine RBC LESS THAN 1 Urine WBC LESS THAN 1 Urine Squamous Epithelial <1 Cells Urine Calcium Oxalate Crystals OCC Urine Mucus FEW Microscopic Urinalysis Comment CULT NOT INDICATED MDM Medical Record Reviewed: Yes Interpretation(s) 31y/o at 36w4d with 5 previous c/s. -no evidence of labor -reassuring status -discussed c/s in depth, risks including but not limited to: infection, bleeding , bowel/bladder injury, injury to fetus, wound infection/separation -will call pt with c/s date tomorrow. Plan -d/c home -f/u for routine care tomorrow as scheduled Diagnosis Diagnosis: Primary Impression: Previous delivery affecting Additional Impression: 36 weeks gestation of Disposition: DISCHARGE HOME Patient Instructions: Abdominal Pain in (ED) Virginia Ferro MD January 16, 2017 00:39
== END 2017-01-16 00:50 | disposition home or self-care (01) ==
LOC: HOBED 23:08
DX: O26.893 Other specified pregnancy related conditions, third trimester (principal); Z3A.36 36 weeks gestation of pregnancy
CPT/HCPCS: 81001; 99284

== ENCOUNTER 2017-01-18 10:28 | Inpatient (IN) | payer MEDICAID ==
[~2017-01-18] VITALS: Ht 157.5 cm; Wt 95.3 kg
[~2017-01-18 10:28] MED LIST changes: -AZIT250T3 PO; -ZANT150T2 PO
[2017-01-18 11:31] LABS: AUTOMATED NEUTROPHIL # 7.5 TH/MM3 (1.8-7.7); BASOPHIL % 0.3 % (0.0-2.0); EOSINOPHIL # 0.1 TH/MM3 (0-0.4); EOSINOPHIL % 0.9 % (0.0-4.0); HEMATOCRIT 31.7 % (35.0-46.0); HEMO FLAGS DIFF FINAL; LYMPH % 22.3 % (9.0-44.0); LYMPHOCYTE # 2.4 TH/MM3 (1.0-4.8); MEAN CELL VOLUME 78.2 FL (80.0-100.0); MEAN CORPUSCULAR HEMOGLOBIN 25.8 PG (27.0-34.0); MONO % 7.8 % (0.0-8.0); NEUT % 68.7 % (16.0-70.0); PLATELET COUNT 234 TH/MM3 (150-450); RED BLOOD COUNT 4.05 MIL/MM3 (4.00-5.30); WHITE BLOOD COUNT 10.9 TH/MM3 (4.0-11.0)
[2017-01-18 11:37] LABS: BACTERIA, URINE RARE /hpf; BLOOD, URINE NEG (NEG); GLUCOSE,URINE NEG (NEG); KETONE, URINE NEG (NEG); MUCUS URINE FEW /lpf (OCC); NITRITE,URINE NEG (NEG); PH, URINE 6.5 (5.0-8.5); SQUAMOUS EPITHELIAL CELL URINE 3 /hpf (0-5); URINE COLOR YELLOW (YELLW/STRAW)
[2017-01-18 11:38] LABS: COMMENT (UR) CULT NOT INDICATED; CULTURE IF INDICATED CULT NOT INDICATED
[2017-01-18] MEDS ORDERED: LACTATED RINGER'S 1000 ML INJ 1,000 ML IV ONE (12:21)
[2017-01-18] MEDS ORDERED: AMPICILLIN INJ 2,000 MG in SODIUM CHLORIDE 0.9% INJ 100 ML IV ONE (12:30)
[2017-01-18] MEDS ORDERED: GENTAMICIN INJ 120 MG in SODIUM CHLORIDE 0.9% INJ 100 ML IV ONE (12:30)
[2017-01-18] MEDS ORDERED: LACTATED RINGER'S 1000 ML INJ 1,000 ML IV SCH ×2 (12:51→19:21)
[2017-01-18] MEDS ORDERED: HYDROCORTISONE SOD SUCCINATE 100 MG VIAL IV ONE (13:00)
[2017-01-18] MEDS ORDERED: ONDANSETRON HCL 4 MG/2 ML VIAL ONE (13:13)
[2017-01-18] MEDS ORDERED: MORPHINE SULFATE PF 5 MG/10 ML VIAL ONE (13:13)
[2017-01-18 13:20] LABS: AMPHETAMINE, URINE NEG (NEG); BARBITURATES, URINE NEG (NEG); COCAINE, URINE NEG (NEG)
[2017-01-18] MEDS ORDERED: CITRIC ACID-SODIUM CITRATE LIQ 30 ML UDC PO SCH (14:00)
[2017-01-18 14:25] VITALS: BP 105/53; PULSE 98; RESP 16; TEMP 98.7; O2SAT 100
--- NOTE | 2017-01-18 14:27 | PD.OB.DELI ---
Procedure Note Section Procedure Pre Op Diagnosis: (1) Lupus (2) Maternal rheumatoid arthritis complicating (3) Previous delivery affecting (4) History of classical section (5) 37 weeks gestation of Pre Op Diagnosis 4cm uterine window separation Post Op Diagnosis: Performed by Corrina Shin Procedure: Repeat Low Transverse Sec Indication for delivery: Desired elective repeat Informed consent obtained: For anesthesia, For procedure Confirmed correct: Time-out taken Anesthesia: Spinal Medication prior to procedure: Antacids, Antibiotics, IV Monitoring during procedure: Blood pressure monitoring, Pulse oximetry Urinary catheter: Inserted using sterile technique, To dependent drainage Sterile preparation: Duraprep Position: Supine with wedge to left side Operative Features Skin Incision: Pfannenstiel Uterine Incision: Low transverse w/knife / blunt ext Membranes Ruptured: Amount of liquid (copious), Appearance of fluid (clear) Presentation: Occiput posterior Time of : 13:48 Delivery of : Uneventful (Due to polyhydramnios vacuum assistance required to deliver head) Infant: Male One Minute : 9 Five Minute : 9 Weight: 2869gms Status of infant: Viable Placenta delivered: Intact Maternal Condition: Stable Condition: Stable Corrina Shin MD January 18, 2017 14:27
[2017-01-18] MEDS ORDERED: ACETAMINOPHEN 325 MG TAB PO PRN (14:30)
[2017-01-18] MEDS ORDERED: fentaNYL CITRATE 250 MCG/5 ML AMP ONE (14:30)
[2017-01-18] MEDS ORDERED: ZOLPIDEM TARTRATE 5 MG TAB PO PRN (14:30)
[2017-01-18] MEDS ORDERED: OXYTOCIN 30 UNITS-500ML PREMIX 500 ML IV ONE (14:30)
[2017-01-18] MEDS ORDERED: oxyCODONE/ACETAMINOPHEN 5 MG/325 MG TAB PO PRN (14:30)
[2017-01-18] MEDS ORDERED: SODIUM CHLORIDE 0.9% FLUSH 10 ML FLUSH IV FLUSH PRN (14:30)
--- NOTE | 2017-01-18 14:35 | HHI.HP ---
History & Physical H&P care with [facility], records reviewed, complicated by: 1. late entry to care at 26w 2. h/o 5 previous c/s (1st TIUP) 3. h/o Lupus, in "remission" 4. Asthma, recent prednisone use 2 weeks ago 5. young multigravida, has not signed state tubal consent form Para: 6 : 8 History Past Medical History Narrative Medical h/o Lupus in remission Asthma, recent prednisone use Obstetric History Obstetric History 5 previous c/s 1st c/s for TIUP Family History Family History: Negative Social History Alcohol Use: No Tobacco Use: No Substance Abuse: No Allergies-Medications (Allergen,Severity, Reaction): Coded Allergies: Ancef (Verified Allergy, Severe, 12/19/16) Clindamycin (Verified Allergy, Severe, Swelling, 12/19/16) Iodine (Verified Allergy, Severe, 12/19/16) Tramadol (Verified Allergy, Severe, RASH/HIVES, 12/19/16) Cipro (Verified Allergy, Intermediate, Swelling, 12/19/16) *MDRO Multi-Drug Resistant Organism (Verified Allergy, Unknown, 12/19/16) MRSA Rocephin (Verified Allergy, Unknown, 12/19/16) Prednisone (Verified Adverse Reaction, Intermediate, INCREASED HEART RATE AND BLOOD PRESSURE., 12/19/16) Home Meds Active Scripts Ipratropium-Albuterol Neb (Duoneb)0.5-2.5 Mg/3 Ml Neb1 Nebule INH Q4HR NEB PRN ( SOB/WHEEZING) 10 Days Ref 0 Prov:Josette Chavarria CORROSION CONTROL SPECIALIST 12/19/16 Azithromycin 250 Mg [id number] Mg PO DAILY 4 Days Ref 0 Prov:Josette Chavarria [facility] 12/19/16 Ranitidine (Zantac)150 Mg [id number] Mg PO BID #60 TAB Ref 5 Prov:Yoana ReyesP 12/05/16 W/O Vit A W/ Fe Fumar (Citranatal [place])27-1-260 Mg Cap1 Cap PO DAILY #60 CAP Ref 3 Prov:Luz Elena Mcmanus CNM CORROSION CONTROL SPECIALIST 11/03/16 Reported Medications Albuterol 8.5 GM Inh (Proair Hfa 8.5 GM Inh)90 Mcg/Act Aer2 Puff INH Q4-6H PRN ( SHORTNESS OF BREATH) #1 INHALER Ref 0 108 mcg/actuation 11/20/16 Review of Systems Except as stated in HPI: all other systems reviewed are Neg Physical Exam Narrative GENERAL: Well-nourished, well-developed patient. SKIN: Warm and dry. HEAD: Normocephalic and atraumatic. EYES: No scleral icterus. No injection or drainage. ENT: No nasal drainage noted. Mucous membranes pink. Airway patent. NECK: Supple, trachea midline. No JVD. CARDIOVASCULAR: Regular rate and rhythm without murmurs, gallops, or rubs. RESPIRATORY: Breath sounds equal bilaterally. No accessory muscle use. BREASTS: Bilateral exam showed no masses , no retractions, no nipple discharge. ABDOMEN/GI: Abdomen soft, non-tender, bowel sounds present, no rebound, no guarding Gravid to 38 weeks size GENITOURINARY: External Genitalia: intact and normal in appearance Cervix: c/s/p Uterine Contractions: few FHT's: Category: 1 EXTREMITIES: No cyanosis or edema. BACK: Nontender without obvious deformity. No CVA tenderness. NEUROLOGICAL: Awake and alert. Motor and sensory grossly within normal limits. Five out of 5 muscle strength in all muscle groups. Normal speech. Assessment: 37 weeks gestation with multiple previous , h/o classical c -section in the past Lupus - in remission Asthma - Previous OB recommended Steroids during surgery due to Prednisone use Multiple drug allergies -will use ampicill and gentamycin pre op Corrina Shin MD January 18, 2017 14:35
[2017-01-18 14:40] VITALS: BP 96/50; PULSE 80; RESP 16; O2SAT 100
[2017-01-18] MEDS ORDERED: diphenhydrAMINE HCL 50 MG/ML VIAL ONE (14:42)
[2017-01-18 14:55] VITALS: BP 101/53; PULSE 77; RESP 16; O2SAT 94
[2017-01-18] MEDS ORDERED: KETOROLAC TROMETHAMINE 30 MG/ML (IVP) VIAL ONE (15:03)
[2017-01-18 15:10] VITALS: BP 120/60; PULSE 80; RESP 16; O2SAT 100
[2017-01-18] MEDS ORDERED: OXYTOCIN 30 UNITS-500ML PREMIX 500 ML ONE ×2 (15:15→15:21)
--- NOTE | 2017-01-18 15:23 | MP ---
cc: CYDNEY WONG M.D. DATE OF SURGERY: 01/18/2017 PREOPERATIVE DIAGNOSIS 1. 37 weeks gestation. 2. History of multiple prior sections. 3. History of classical section. 4. Lupus in remission. 5. Maternal rheumatoid arthritis complicated . 6. Asthma with previous history of steroid use. POSTOPERATIVE DIAGNOSIS 1. 37 weeks gestation. 2. History of multiple prior sections. 3. History of classical section. 4. Lupus in remission. 5. Maternal rheumatoid arthritis complicated . 6. Asthma with previous history of steroid use. 7. Polyhydramnios. 8. 4 cm uterine window. SURGEON Cydney Wong [employer] Radha Kendall PROCEDURE Repeat low transverse section. ANESTHESIA Spinal. COMPLICATIONS No complications. ESTIMATED BLOOD LOSS 600 cc. PREMEDICATIONS Ancef two grams and gentamicin 120 mg given preoperatively. DRAINS Rajput to gravity. FINDINGS 1. A 3 cm subserosal uterine fibroid noted anteriorly. 2. Polyhydramnios. 3. Rectus diastasis due to previous surgery. 4. male, Apgars 9 and 9, 6 pounds 5 ounces which is 2860 grams. 5. 4 cm uterine window noted at her previous scar. DESCRIPTION OF THE PROCEDURE The patient was taken back to the operating room, prepped and draped in the usual sterile fashion, placed in dorsal supine position with a left lateral tilt. After adequate anesthetic was obtained an incision was made into the skin taken down to the fascia. The fascia was nicked in midline and extended bilaterally, taken off the rectus muscles. The rectus muscles were divided in the midline. Diastasis was noted here by about 5 cm due to previous surgery. The anterior peritoneum was adhesed to the fascia and the vesicouterine peritoneum. The vesicouterine peritoneum was taken down. A 4 cm uterine window was noted which was ruptured and polyhydramnios was noted with copious amounts of clear fluid. Due to the polyhydramnios and the floating head it was difficult to deliver the head so a vacuum was placed on the head and with one single pull the head and the rest of the body was delivered with 45 second cord clamping delay prior to clamping the cord segment and handing the baby off for resuscitation. The placenta was delivered intact and the endometrial cavity was curetted with a moist laparotomy sponge. The vesicouterine peritoneum was dissected downwards so I could find enough lower segment to close the uterine incision which was closed using a running locking #1 chromic suture. Gutters were rendered free of all blood clot material. The fascia was closed with #1 PDS. The subcutaneous tissue was made hemostatic with the Bovie and a subcuticular closure of Monocryl was placed into the skin. The patient tolerated the procedure well. She has taken back to the recovery room in good condition. Cydney Wong MD /BT /2:39 PM /3:07 PM
[2017-01-18] MEDS ORDERED: EPIDURAL-DIPHENHYDRAMINE HCL 50 MG CAP PO PRN (16:15)
[2017-01-18] MEDS ORDERED: EPIDURAL-NALOXONE HCL 0.4 MG/ML AMP IV PRN (16:15)
[2017-01-18] MEDS ORDERED: EPIDURAL-NO SYSTEMIC NARCOTICS PRN (16:15)
[2017-01-18] MEDS ORDERED: EPIDURAL-DO NOT ADMINISTER ANTICOAGULANTS PRN (16:15)
[2017-01-18] MEDS: ONDANSETRON HCL 4 MG/2 ML VIAL IV PUSH PRN ×2 (16:33→22:04)
[2017-01-18] MEDS ORDERED: METHYLERGONOVINE MALEATE 0.2 MG/ML VIAL IM ONE ×2 (16:45→18:45)
[2017-01-18] MEDS ORDERED: PROCHLORPERAZINE INJ 10 MG/2 ML VIAL IV PUSH PRN (17:15)
[2017-01-18] MEDS ORDERED: MISOPROSTOL 200 MCG TAB ONE (17:21)
--- NOTE | 2017-01-18 17:29 | PD.LABORPN ---
Subjective Subjective called to see patient for post op vaginal bleeding. Approx 6 peripads of vaginal bleeding despite pitocin and 1 dose of methergine. Risk factors include 6 prior and h/o hemorrhage in the past. Objective Vital Signs Vital Signs Date Time Temp Pulse Resp B/P Pulse Ox O2 Delivery O2 Flow Rate FiO2 01/18/17 15:10 80 16 100 01/18/17 15:10 120/60 01/18/17 14:55 77 16 101/53 01/18/17 14:55 94 01/18/17 14:40 80 16 96/50 100 01/18/17 14:25 105/53 01/18/17 14:25 98.7 98 16 100 Objective Fundus is at the umbilicus. Vaginal exam notes blood clots in the uterus with cervix open to only 1cm, obstructing the escape of clots. Digital evacuation was done removing the blood clots with resultant firm fundus. Methergin 0.2mg IM and Cytotec buccally 800mcg was administered. Assessment/Plan Problem List: (1) hemorrhage, condition (2) 37 weeks gestation of (3) Previous delivery affecting (4) Lupus Assessment and Plan Check stat CBC - patient is hemodynamically stable at this point but did have mild anemia during Watch for continued uterine atony Patient with persistent nausea and vomiting following surgery despite Zofran - Compazine was ordered Corrina Shin MD January 18, 2017 17:29
[2017-01-18 18:32] LABS: HEMATOCRIT 30.9 % (35.0-46.0); REVIEW FLAG FINAL
[2017-01-18] MEDS ORDERED: MISOPROSTOL 200 MCG TAB PO ONE (18:45)
[2017-01-18 19:05] VITALS: BP 107/61; PULSE 55; RESP 16; TEMP 97.7; O2SAT 97
[2017-01-18] MEDS ORDERED: SODIUM CHLORIDE 0.9% FLUSH 10 ML FLUSH IV FLUSH SCH (21:00)
[2017-01-18] MEDS: EPIDURAL-DIPHENHYDRAMINE HCL 50 MG/ML VIAL IV PUSH PRN (22:14)
[2017-01-19] MEDS ORDERED: OXYTOCIN 30 UNITS-500ML PREMIX 500 ML IV PRN (00:30)
[2017-01-19 06:03] LABS: AUTOMATED NEUTROPHIL # 13.5 TH/MM3 (1.8-7.7); BASOPHIL % 0.2 % (0.0-2.0); EOSINOPHIL % 0.2 % (0.0-4.0); HEMATOCRIT 28.2 % (35.0-46.0); HEMO FLAGS DIFF FINAL; LYMPH % 15.4 % (9.0-44.0); LYMPHOCYTE # 2.7 TH/MM3 (1.0-4.8); MEAN CELL VOLUME 78.8 FL (80.0-100.0); MEAN CORPUSCULAR HEMOGLOBIN 25.3 PG (27.0-34.0); MEAN CORPUSCULAR HGB CONC 32.1 % (32.0-36.0); MONO % 7.5 % (0.0-8.0); NEUT % 76.7 % (16.0-70.0); PLATELET COUNT 230 TH/MM3 (150-450); RED BLOOD COUNT 3.58 MIL/MM3 (4.00-5.30); RED CELL DISTRIBUTION WIDTH 14.9 % (11.6-17.2); WHITE BLOOD COUNT 17.6 TH/MM3 (4.0-11.0)
[2017-01-19] MEDS: oxyCODONE/ACETAMINOPHEN 5 MG/325 MG TAB PO PRN ×4 (06:17→20:13)
[2017-01-19 09:00] VITALS: BP 118/68; PULSE 76; RESP 18; TEMP 98.8
[2017-01-19] MEDS: ONDANSETRON HCL 4 MG/2 ML VIAL IV PUSH PRN ×2 (09:44→16:31)
[2017-01-19] MEDS: EPIDURAL-DIPHENHYDRAMINE HCL 50 MG/ML VIAL IV PUSH PRN (09:44)
[2017-01-19] MEDS: IBUPROFEN 600 MG TAB PO PRN ×2 (09:45→16:30)
--- NOTE | 2017-01-19 10:24 | HHI.OB ---
Subjective Post Operative Day: 1 Remarks Pt seen and examined this morning.Postoperative day # 1 AFVSS overnight. Incision not draining. Decreased lochia. Denies dysuria. No breast tenderness. She is feeding the baby via breast and bottle. Appetite good. No nausea or vomiting. Patient has not yet had a bowel movement. -Flatus. Ambulating well. Denies calf pain or shortness of breath. She endorses incisional pain. Otherwise , she is doing well this morning and has no other concerns. (Sunitha Warren MD R2) Objective Vitals/I&O Vital Signs Date Time Temp Pulse Resp B/P Pulse Ox O2 Delivery O2 Flow Rate FiO2 01/19/17 09:00 98.8 76 18 118/68 01/18/17 19:05 97.7 55 16 107/61 97 01/18/17 15:10 80 16 100 01/18/17 15:10 120/60 01/18/17 14:55 77 16 101/53 01/18/17 14:55 94 01/18/17 14:40 80 16 96/50 100 01/18/17 14:25 105/53 01/18/17 14:25 98.7 98 16 100 (Sunitha Warren MD R2) Result Diagram: 01/19/17 0450 Objective Remarks GENERAL: Well-nourished, well-developed patient. CARDIOVASCULAR: Regular rate and rhythm without murmurs, gallops, or rubs. RESPIRATORY: Breath sounds equal bilaterally. No accessory muscle use. ABDOMEN/GI: Abdomen soft, non-tender, bowel sounds present. Incision: Clean, dry and intact. Fundus: Firm, non-tender at umbilicus. GENITOURINARY: Light to moderate bleeding. EXTREMITIES: No cyanosis or edema, non-tender, without signs of DVT. Medications and IVs Current Medications Medications (Trade) Dose Ordered Sig/Marina Route Start Time Stop Time Status Last Admin Lactated Ringer's 1,000 ml @ 150 mls/hr Q6H40M IV 01/18/17 12:51 01/18/17 12:51 (Lr 1000 ml Inj) 1,000 ml @ 100 mls/hr Q10H IV 01/18/17 19:21 01/19/17 15:20 01/19/17 00:41 (NS Flush) 2 ml BID IV FLUSH 01/18/17 21:00 (NS Flush) 2 ml UNSCH PRN IV FLUSH 01/18/17 14:30 (Mylicon Chew) 80 mg QID PRN PO 01/18/17 14:30 (Tylenol) 650 mg Q6H PRN PO 01/18/17 14:30 (Motrin) 600 mg Q6H PRN PO 01/18/17 14:30 01/19/17 09:45 (Percocet 5-325 Mg) 1 tab Q4H PRN PO 01/18/17 14:30 (Percocet 5-325 Mg) 2 tab Q4H PRN PO 01/18/17 14:30 01/19/17 06:17 (Sarah-Colace) 2 tab Q12H PRN PO 01/18/17 14:30 (Ambien) 5 mg HS PRN PO 01/18/17 14:30 (M-M-R Ii Inj) 0.5 ml ONCE ONCE SQ 01/19/17 16:00 01/19/17 16:01 (Boostrix Inj) 0.5 ml ONCE ONCE IM 01/19/17 16:00 01/19/17 16:01 (Zofran Inj) 4 mg Q6H PRN IV PUSH 01/18/17 14:30 01/19/17 09:44 Miscellaneous Information NO SYSTEMIC NARCOTICS TO BE GIVEN FO... UNSCH PRN .XX 01/18/17 16:15 01/19/17 16:14 (Narcan Inj) 0.4 mg UNSCH PRN IV 01/18/17 16:15 01/19/17 16:14 (Benadryl Inj) 25 mg Q6H PRN IV PUSH 01/18/17 16:15 01/19/17 16:14 01/19/17 09:44 (Benadryl) 50 mg Q6H PRN PO 01/18/17 16:15 01/19/17 16:14 Miscellaneous Information ALL NURSING DEPARTMENTS UNSCH PRN .XX 01/18/17 16:15 01/19/17 16:14 (Compazine Inj) 10 mg Q8H PRN IV PUSH 01/18/17 17:15 01/18/17 17:37 (fentaNYL INJ) 50 mcg Q3HR PRN IV PUSH 01/18/17 17:15 01/19/17 00:42 (Sunitha Warren MD R2) Assessment/Plan Problem List: (1) hemorrhage, condition (2) 37 weeks gestation of (3) Previous delivery affecting (4) Lupus Assessment and Plan 31 y/o female who is POD# 1 s/p CXN. -Continue routine care. -Percocet and Motrin PRN pain. -Will order abdominal binder -Encouraged OOB. Advised pelvic rest for 6 wks. Will need a f/u appt. in 1-2 wks for incision check. -Re: ctrl, she is considering an IUD, but will further consider her options. -Anticipate discharge 1-2. dw Dr. Kip MD (Sunitha Warren MD R2) Collaborating MD Comments Patient with history of PPH, doing well this morning. Patient seen and evaluated with residents (Corrina Shin MD) Collaborating MD Comments Patient seen and evaluated. Doing well with discharge home soon. (Corrina Shin MD) Sunitha Warren MD R2 January 19, 2017 10:24 Corrina Shin MD January 23, 2017 07:51
[2017-01-19 15:15] VITALS: BP 120/70; PULSE 68; RESP 18; TEMP 98.8
[2017-01-19] MEDS ORDERED: MEASLES, MUMPS, RUBELLA VACCINE 0.5 ML VIAL SQ ONE (16:00)
[2017-01-19] MEDS ORDERED: DIPHTH/TETANUS/ACEL PERTUSSIS (BOOSTER) 0.5 ML VIAL/PFS IM ONE (16:00)
[2017-01-19] MEDS: DOCUSATE SODIUM 50 MG/SENNA 8.6 MG TAB PO PRN (16:28)
[2017-01-19] MEDS ORDERED: diphenhydrAMINE HCL 50 MG CAP PO PRN (17:00)
[2017-01-19] MEDS: PROCHLORPERAZINE MALEATE 5 MG TAB PO PRN (17:23)
[2017-01-19 19:00] VITALS: BP 110/63; PULSE 68; RESP 18; TEMP 97.8
[2017-01-19] MEDS: SIMETHICONE 80 MG CHEWABLE TAB PO PRN (19:14)
[2017-01-20] MEDS: IBUPROFEN 600 MG TAB PO PRN (00:49)
[2017-01-20] MEDS: oxyCODONE/ACETAMINOPHEN 5 MG/325 MG TAB PO PRN ×6 (00:50→20:42)
[2017-01-20] MEDS: SIMETHICONE 80 MG CHEWABLE TAB PO PRN ×4 (00:53→16:30)
[2017-01-20] MEDS: DOCUSATE SODIUM 50 MG/SENNA 8.6 MG TAB PO PRN ×2 (04:42→16:31)
[2017-01-20] MEDS: PROCHLORPERAZINE MALEATE 5 MG TAB PO PRN (05:51)
[2017-01-20 08:20] VITALS: BP 107/75; PULSE 70; RESP 18; TEMP 98
--- NOTE | 2017-01-20 08:34 | HHI.OB ---
Subjective Post Operative Day: 2 Remarks Pt seen and examined this morning.Postoperative day # 2 AFVSS overnight. Incision not draining. Decreased lochia. Denies dysuria. No breast tenderness. She is feeding the baby via bottle. Appetite good. No nausea or vomiting. Patient has not yet had a bowel movement. -Flatus. She has been out of bed. She reports that her pain is not well controlled, after current medication pain will decrease to about a 7/10 in intensity. Denies calf pain or shortness of breath. Otherwise, she is doing well this morning and has no other concerns. Objective Vitals/I&O Vital Signs Date Time Temp Pulse Resp B/P Pulse Ox O2 Delivery O2 Flow Rate FiO2 01/19/17 19:00 97.8 68 18 110/63 01/19/17 15:15 68 18 120/70 01/19/17 15:15 98.8 01/19/17 09:00 98.8 76 18 118/68 Result Diagram: 01/19/17 0450 Objective Remarks GENERAL: Well-nourished, well-developed patient. CARDIOVASCULAR: Regular rate and rhythm without murmurs, gallops, or rubs. RESPIRATORY: Breath sounds equal bilaterally. No accessory muscle use. ABDOMEN/GI: Abdomen soft, non-tender, bowel sounds present. Incision: Clean, dry and intact. Fundus: Firm, non-tender at umbilicus. GENITOURINARY: Light to moderate bleeding. EXTREMITIES: No cyanosis or edema, non-tender, without signs of DVT. Medications and IVs Current Medications Medications (Trade) Dose Ordered Sig/Marina Route Start Time Stop Time Status Last Admin (Lr 1000 ml Inj) 1,000 ml @ 150 mls/hr Q6H40M IV 01/18/17 12:51 01/18/17 12:51 (NS Flush) 2 ml BID IV FLUSH 01/18/17 21:00 (NS Flush) 2 ml UNSCH PRN IV FLUSH 01/18/17 14:30 (Mylicon Chew) 80 mg QID PRN PO 01/18/17 14:30 01/20/17 08:25 (Tylenol) 650 mg Q6H PRN PO 01/18/17 14:30 (Motrin) 600 mg Q6H PRN PO 01/18/17 14:30 01/20/17 00:49 (Percocet 5-325 Mg) 1 tab Q4H PRN PO 01/18/17 14:30 (Percocet 5-325 Mg) 2 tab Q4H PRN PO 01/18/17 14:30 01/20/17 08:25 (Sarah-Colace) 2 tab Q12H PRN PO 01/18/17 14:30 01/20/17 04:42 (Ambien) 5 mg HS PRN PO 01/18/17 14:30 (Zofran Inj) 4 mg Q6H PRN IV PUSH 01/18/17 14:30 01/19/17 09:44 (Compazine Inj) 10 mg Q8H PRN IV PUSH 01/18/17 17:15 01/18/17 17:37 (fentaNYL INJ) 50 mcg Q3HR PRN IV PUSH 01/18/17 17:15 01/19/17 00:42 (Benadryl) 50 mg Q6H PRN PO 01/19/17 17:00 01/19/17 17:23 (Compazine) 5 mg Q6H PRN PO 01/19/17 17:00 01/20/17 05:51 Assessment/Plan Problem List: (1) hemorrhage, condition (2) 37 weeks gestation of (3) Previous delivery affecting (4) Lupus Assessment and Plan 31 y/o female who is POD# 2 s/p CXN. -Continue routine care. -Percocet and Motrin PRN pain. -Will add Toradol IM Q6 hours -Will order abdominal binder -Encouraged OOB. Advised pelvic rest for 6 wks. Will need a f/u appt. in 1-2 wks for incision check. -Re: ctrl, she is considering an IUD, but will further consider her options. -Anticipate discharge tomorrow. dw MD Kelvin Bai Mariaah MD R2 January 20, 2017 08:34
[2017-01-20] MEDS ORDERED: KETOROLAC TROMETHAMINE 60 MG/2 ML (IM) VIAL IM SCH (09:00)
[2017-01-20] MEDS ORDERED: KETOROLAC TROMETHAMINE 60 MG/2 ML (IM) VIAL IM PRN (10:09)
[2017-01-20] MEDS: KETOROLAC TROMETHAMINE 60 MG/2 ML (IM) VIAL IM PRN ×2 (16:32→23:23)
--- NOTE | 2017-01-20 17:05 | HHI.PR ---
Addendum to Inpatient Note Addendum Reason: Additional Documentation Additional Information Resident's paged regarding patient concern of area below incision. Patient reports a history of cellulitis and abscess formation in the groin region. On exam area below incision is without erythema or significant edema. There is no significant drainage from incision. There are no signs of infection. Patient is afebrile. Will continue to monitor wound. (Sunitha Warren MD R2) Attestation Agree with above. Vitals stable. (Virginia Ferro MD) Sunitha Warren MD R2 January 20, 2017 17:05 Virginia Ferro MD January 20, 2017 17:31
[2017-01-20 20:20] VITALS: BP 114/67; PULSE 66; RESP 17; TEMP 98.7; O2SAT 98
[2017-01-21 03:55] VITALS: TEMP 98.7
[2017-01-21] MEDS: oxyCODONE/ACETAMINOPHEN 5 MG/325 MG TAB PO PRN ×3 (03:55→13:48)
[2017-01-21] MEDS ORDERED: ZOFR4TAB PO (07:55)
[2017-01-21] MEDS ORDERED: SENN1TAB PO (07:55)
[2017-01-21] MEDS ORDERED: OXYC1TAB63 PO (07:55)
[2017-01-21] MEDS ORDERED: IBUP-232 PO (07:55)
--- NOTE | 2017-01-21 07:57 | HHI.DCPOC ---
Discharge Care Plan Diagnosis: (1) Delivered by section Goals to Promote Your Health * To prevent worsening of your condition and complications * To maintain your health at the optimal level Directions to Meet Your Goals Take your medications as prescribed Follow your dietary instruction Follow activity as directed Keep your appointments as scheduled Take your immunizations and boosters as scheduled If your symptoms worsen call your PCP, if no PCP go to Urgent Care Center or Emergency Room Smoking is Dangerous to Your Health. Avoid second hand smoke Call the 24-hour hour crisis hotline for domestic abuse at Thierno Martinez MD R2 January 21, 2017 07:57
[2017-01-21 09:00] VITALS: BP 121/84; PULSE 89; RESP 16; TEMP 98.6
--- NOTE | 2017-01-21 09:03 | HHI.OB ---
Subjective Remarks 31 year old POD 3 after . Lochia is normal. She desires Mirena for control. Her OB provider is [facility]. She is formula feeding. She had a bowel movement. She is ambulating without difficulty. Pain is well controlled. She has some nausea, no vomiting. Good appetite. No complaints about incision site. (Thierno Martinez MD R2) Objective Vitals/I&O Vital Signs Date Time Temp Pulse Resp B/P Pulse Ox O2 Delivery O2 Flow Rate FiO2 01/21/17 03:55 98.7 01/20/17 20:20 66 17 114/67 98 01/20/17 20:20 98.7 (Thierno Martinez MD R2) Result Diagram: 01/19/17 0450 Objective Remarks GENERAL: Well-nourished, well-developed patient. CARDIOVASCULAR: Regular rate and rhythm without murmurs, gallops, or rubs. RESPIRATORY: Breath sounds equal bilaterally. No accessory muscle use. ABDOMEN/GI: Abdomen soft, non-tender, bowel sounds present. Incision: Clean, dry and intact. Fundus: Firm, non-tender at umbilicus. GENITOURINARY: Light to moderate bleeding. EXTREMITIES: No cyanosis or edema, non-tender, without signs of DVT. Medications and IVs Current Medications Medications (Trade) Dose Ordered Sig/Marina Route Start Time Stop Time Status Last Admin (Lr 1000 ml Inj) 1,000 ml @ 150 mls/hr Q6H40M IV 01/18/17 12:51 01/18/17 12:51 (NS Flush) 2 ml BID IV FLUSH 01/18/17 21:00 (NS Flush) 2 ml UNSCH PRN IV FLUSH 01/18/17 14:30 (Mylicon Chew) 80 mg QID PRN PO 01/18/17 14:30 01/20/17 16:30 (Tylenol) 650 mg Q6H PRN PO 01/18/17 14:30 (Motrin) 600 mg Q6H PRN PO 01/18/17 14:30 01/20/17 00:49 (Percocet 5-325 Mg) 1 tab Q4H PRN PO 01/18/17 14:30 (Percocet 5-325 Mg) 2 tab Q4H PRN PO 01/18/17 14:30 01/21/17 03:55 (Sarah-Colace) 2 tab Q12H PRN PO 01/18/17 14:30 01/20/17 16:31 (Ambien) 5 mg HS PRN PO 01/18/17 14:30 (Zofran Inj) 4 mg Q6H PRN IV PUSH 01/18/17 14:30 01/19/17 09:44 (Compazine Inj) 10 mg Q8H PRN IV PUSH 01/18/17 17:15 01/18/17 17:37 (fentaNYL INJ) 50 mcg Q3HR PRN IV PUSH 01/18/17 17:15 01/19/17 00:42 (Benadryl) 50 mg Q6H PRN PO 01/19/17 17:00 01/19/17 17:23 (Compazine) 5 mg Q6H PRN PO 01/19/17 17:00 01/20/17 05:51 (Toradol Inj) 30 mg Q6HR PRN IM 01/20/17 11:00 01/25/17 10:59 01/20/17 23:23 (Thierno Martinez MD R2) Assessment/Plan Problem List: (1) Lupus (2) Delivered by section Assessment and Plan 31 y/o female who is POD# 3 s/p CXN. -Continue routine care. -Percocet and Motrin PRN pain. -Encouraged OOB. Advised pelvic rest for 6 wks. Will need a f/u appt. in 1-2 wks for incision check. -Re: ctrl, she is considering Mirena -Anticipate discharge today dw Dr. Pillo MD (Thierno Martinez MD R2) Attending Attestation Pt seen and examined, agree with above. Reassured about healing and incision. (Virginia Ferro MD) Thierno Martinez MD R2 January 21, 2017 09:03 Virginia Ferro MD January 21, 2017 09:34
[2017-01-21] MEDS: DOCUSATE SODIUM 50 MG/SENNA 8.6 MG TAB PO PRN (09:07)
[2017-01-21] MEDS ORDERED: OXYC1TAB35 PO (09:24)
[2017-01-21] MEDS ORDERED: ONDANSETRON HCL 4 MG/2 ML VIAL IV PUSH ONE (11:45)
[2017-01-21] MEDS ORDERED: ONDANSETRON ODT 4 MG TAB PO ONE (12:30)
[2017-01-24 10:34] LABS: BATH SALTS (MDPV) UR NEG (NEG); ECSTASY (MDMA) UR NEG (NEG); HEROIN (6-ACETYLMORPHINE) UR NEG (NEG); K2 SPICE UR NEG (NEG); OBMETHADONE UR NEG (NEG); OXYCODONE (PERCODAN) NEG (NEG); PHENCYCLIDINE URINE NEG (NEG)
[2017-01-24 10:35] LABS: GABAPENTIN UR NEG (NEG); HYDROMORPHONE U NEG (NEG)
== END 2017-01-21 14:32 | disposition home or self-care (01) | DRG 765 ==
LOC: H2EB 10:28 → H1EA 15:28
PROVIDERS: ADMIT Obstetrics & Gynecology Obstetrics; ATTEND Obstetrics & Gynecology Obstetrics
PROC: 10D00Z1 Extraction of Products of Conception, Low, Open Approach (ICD-10-PCS; principal; 2017-01-18)
DX: O40.3XX0 Polyhydramnios, third trimester, not applicable or unspecified (principal); O72.1 Other immediate postpartum hemorrhage; M32.9 Systemic lupus erythematosus, unspecified; D25.2 Subserosal leiomyoma of uterus; O34.13 Maternal care for benign tumor of corpus uteri, third trimester; O34.211 Maternal care for low transverse scar from previous cesarean delivery; Z37.0 Single live birth; Z3A.37 37 weeks gestation of pregnancy; O99.52 Diseases of the respiratory system complicating childbirth; J45.909 Unspecified asthma, uncomplicated; O26.93 Pregnancy related conditions, unspecified, third trimester; M06.9 Rheumatoid arthritis, unspecified; O99.02 Anemia complicating childbirth; D64.9 Anemia, unspecified; Z88.8 Allergy status to other drugs, medicaments and biological substances; Z88.1 Allergy status to other antibiotic agents; Z91.013 Allergy to seafood
CPT/HCPCS: 59025; 80307; 81001; 82948; 85014; 85018; 85025; 86850; 86900; 86901; 87641; 90715; G0481; J0290; J0780; J1200; J1580; J1720; J1885; J2210; J2274; J2405; J2590; J3010; J7120; Q0163; Q0164

== ENCOUNTER 2017-05-11 18:18 | Emergency (ER) | payer MEDICAID, OTHER ==
[~2017-05-11] VITALS: Ht 157.5 cm; Wt 94.0 kg
[~2017-05-11 18:18] MED LIST changes: +IBUP-232 PO; -IPRASOL INH; +OXYC1TAB35 PO; +ZOFR4TAB PO
[2017-05-11 18:28] VITALS: BP 149/75; PULSE 89; RESP 16; TEMP 97.8; O2SAT 99
[2017-05-11] MEDS ORDERED: ORPHENADRINE INJ 60 MG/2 ML AMP IM ONE (18:45)
[2017-05-11] MEDS ORDERED: KETOROLAC TROMETHAMINE 60 MG/2 ML (IM) VIAL IM ONE (18:45)
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
[2017-05-11] MEDS ORDERED: CYCL1TAB29 PO (19:33)
[2017-05-11] MEDS ORDERED: IBUP800T23 PO (19:33)
== END 2017-05-11 19:49 | disposition home or self-care (01) ==
LOC: NEPE 18:18
DX: M25.561 Pain in right knee (principal); S46.911A Strain of unspecified muscle, fascia and tendon at shoulder and upper arm level, right arm, initial encounter; S16.1XXA Strain of muscle, fascia and tendon at neck level, initial encounter; M06.9 Rheumatoid arthritis, unspecified; M32.9 Systemic lupus erythematosus, unspecified; V43.52XA Car driver injured in collision with other type car in traffic accident, initial encounter; Z72.0 Tobacco use; Z88.5 Allergy status to narcotic agent; Z88.8 Allergy status to other drugs, medicaments and biological substances
CPT/HCPCS: 72040; 73564; 96372; 99284; J1885; J2360

== ENCOUNTER 2017-07-24 14:35 | Emergency (ER) | payer MEDICAID ==
[~2017-07-24 14:35] MED LIST changes: -ALBUAER3 INH; +CYCL10TA PO; -IBUP-232 PO; +IBUP1TAB7 PO; -OXYC1TAB35 PO; -PREN1CAP7 PO; -ZOFR4TAB PO
[2017-07-24 15:44] LABS: AUTOMATED NEUTROPHIL # 8.7 TH/MM3 (1.8-7.7); BASOPHIL % 0.3 % (0.0-2.0); EOSINOPHIL # 0.1 TH/MM3 (0-0.4); EOSINOPHIL % 0.4 % (0.0-4.0); HEMATOCRIT 37.2 % (35.0-46.0); HEMO FLAGS DIFF FINAL; LYMPHOCYTE # 2.3 TH/MM3 (1.0-4.8); MEAN CELL VOLUME 78.3 FL (80.0-100.0); MEAN CORPUSCULAR HEMOGLOBIN 25.2 PG (27.0-34.0); MEAN CORPUSCULAR HGB CONC 32.2 % (32.0-36.0); MONO % 5.1 % (0.0-8.0); NEUT % 74.2 % (16.0-70.0); PLATELET COUNT 312 TH/MM3 (150-450); RED BLOOD COUNT 4.75 MIL/MM3 (4.00-5.30); RED CELL DISTRIBUTION WIDTH 18.1 % (11.6-17.2); WHITE BLOOD COUNT 11.7 TH/MM3 (4.0-11.0)
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
[2017-07-24 15:55] LABS: BLOOD, URINE NEG (NEG); COMMENT (UR) CULTURE INDICATED; CULTURE IF INDICATED CULTURE INDICATED; GLUCOSE,URINE NEG (NEG); KETONE, URINE NEG (NEG); MUCUS URINE FEW /lpf (OCC); NITRITE,URINE NEG (NEG); SQUAMOUS EPITHELIAL CELL URINE 2 /hpf (0-5); URINE COLOR YELLOW (YELLW/STRAW)
[2017-07-24 16:07] LABS: BICARBONATE 28.2 MEQ/L (21.0-32.0); POTASSIUM 3.1 MEQ/L (3.5-5.1)
== END 2017-07-24 16:16 | disposition left against medical advice (07) ==
LOC: NETRI 14:35
DX: R10.2 Pelvic and perineal pain (principal); R11.2 Nausea with vomiting, unspecified; R19.7 Diarrhea, unspecified; B96.20 Unspecified Escherichia coli [E. coli] as the cause of diseases classified elsewhere; M06.9 Rheumatoid arthritis, unspecified; J45.909 Unspecified asthma, uncomplicated; M32.9 Systemic lupus erythematosus, unspecified; Z72.0 Tobacco use
CPT/HCPCS: 80048; 81001; 84702; 85025; 85610; 85730; 87077; 87086; 87186; 99283

== ENCOUNTER 2017-10-23 08:32 | Emergency (ER) | payer MEDICAID ==
[~2017-10-23] VITALS: Ht 160 cm; Wt 81.5 kg
[2017-10-23 08:38] VITALS: BP 100/71; PULSE 105; RESP 18; TEMP 98.7; O2SAT 100
--- NOTE | 2017-10-23 09:25 | PD ---
HPI Chief Complaint: Injury Time Seen by Provider: 09:13 Travel History International Travel<30 days: No Contact w/Intl Traveler<30days: No Traveled to known affect area: No History of Present Illness HPI 32-year-old female complains of right ankle right foot pain. Patient states that she found this morning and twisted the right ankle right foot. Patient stated the pain is sharp pain localized to right ankle right foot. patient denies any other injury. Patient states the pain radiated up the right leg. Patient denies any abdominal pain or vaginal discharge or bleeding. Patient is 5 months . 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) Respiratory: Yes Influenza Vaccination: No ?: LMP: 5 mths preg no care yet : 6 Para: 7 Miscarriage: 0 : 0 Past Surgical History Abdominal Surgery: Yes Section: Yes (x5) Ear Surgery: No Endocrine Surgery: No Eye Surgery: No Genitourinary Surgery: No Gynecologic Surgery: Yes Insulin Pump: No Pacemaker: No Other Surgery: Yes Social History Alcohol Use: No (PT DENIES ) Tobacco Use: No Substance Use: No (WEEDS) Allergies-Medications (Allergen,Severity, Reaction): Coded Allergies: cefazolin (Verified Allergy, Severe, HIVES, 10/23/17) povidone-iodine (Verified Allergy, Severe, HIVES, 10/23/17) ceftriaxone (Verified Allergy, Intermediate, HIVES, 10/23/17) ciprofloxacin (Verified Allergy, Intermediate, Swelling, 10/23/17) clindamycin (Verified Allergy, Intermediate, Swelling, 10/23/17) iodine (Verified Allergy, Intermediate, HIVES, 10/23/17) potassium iodide (Verified Allergy, Intermediate, HIVES, 10/23/17) sodium iodide (Verified Allergy, Intermediate, RASH, 10/23/17) tramadol (Verified Allergy, Intermediate, RASH/HIVES, 10/23/17) *MDRO Multi-Drug Resistant Organism (Verified Allergy, Unknown, 10/23/17) MRSA prednisone (Verified Adverse Reaction, Intermediate, INCREASED HEART RATE AND BLOOD PRESSURE., 10/23/17) Reported Meds & Prescriptions Reported Meds & Active Scripts Active Flexeril (Cyclobenzaprine HCl) 10 Mg Tab 10 Mg PO TID PRN Ibuprofen 800 Mg Tab 800 Mg PO Q6HR PRN Review of Systems General / Constitutional: No: Fever Eyes: No: Visual changes HENT: No: Headaches Cardiovascular: No: Chest Pain or Discomfort Respiratory: No: Shortness of Breath Gastrointestinal: No: Abdominal Pain Genitourinary: No: Dysuria Musculoskeletal: Positive: Pain Skin: No Rash Neurologic: No: Weakness Psychiatric: No: Depression Endocrine: No: Polydipsia Hematologic/Lymphatic: No: Easy Bruising Physical Exam Narrative GENERAL: Well-nourished, well-developed patient. SKIN: Focused skin assessment warm/dry. HEAD: Normocephalic. EYES: No scleral icterus. No injection or drainage. NECK: Supple, trachea midline. No JVD or lymphadenopathy. CARDIOVASCULAR: Regular rate and rhythm without murmurs, gallops, or rubs. RESPIRATORY: Breath sounds equal bilaterally. No accessory muscle use. GASTROINTESTINAL: Abdomen soft, non-tender, nondistended. MUSCULOSKELETAL: Patient has soft tissue swelling tenderness lateral malleolus area of the right ankle. Moderate diffuse tenderness of the right ankle. Moderate tenderness on palpation dorsal aspect of the right foot. BACK: Nontender without obvious deformity. No CVA tenderness. Neurologic exam normal. Data Data Last Documented VS Vital Signs Date Time Temp Pulse Resp B/P (MAP) Pulse Ox O2 Delivery O2 Flow Rate FiO2 10/23/17 08:47 19 Room Air 10/23/17 08:38 98.7 105 100/71 (81) 100 Orders Orders Ankle, Limited (Ap&Lat) (10/23/17 09:20) Splint Or Brace Apply/Monitor (10/23/17 09:25) Crutches (10/23/17 09:25) MDM Medical Decision Making Medical Screen Exam Complete: Yes Emergency Medical Condition: Yes Interpretation(s) X-ray right ankle shows possible hairline fracture distal fibula. Differential Diagnosis Differential diagnosis including sprain, fracture, dislocation. Narrative Course 32-year-old female with right ankle and foot injury. Status post fall. Timmons splint and crutches given. Tylenol 650 mg p.o. given. Diagnosis Primary Impression: Fracture of distal end of right fibula Qualified Codes: S82.831A - Other fracture of upper and lower end of right fibula, initial encounter for closed fracture Patient Instructions: General Instructions Additional Instructions: Tylenol for pain. Ice elevation. Follow-up with orthopedist. Med/Other Pt SpecificInfo: No Change to Meds Disposition: 01 DISCHARGE HOME Condition: Stable Claude Cameron MD Oct 23, 2017 09:25
--- NOTE | 2017-10-23 09:38 | RADRPT ---
EXAM DATE/TIME: 10/23/2017 09:25 [facility] COMPARISON: No previous studies available for comparison. INDICATIONS : Right ankle pain; fall this morning. MEDICAL HISTORY : None. SURGICAL HISTORY : None. ENCOUNTER: Initial ACUITY: 1 day PAIN SCORE: 10/10 LOCATION: Right lateral ankle FINDINGS: There is subtle lucency present transversely through the distal fibula which may be a normal appearan ce of the physeal scar in this region or a hairline fracture. There is moderate overlying soft tissue swelling. The ankle mortise is congruent. The ankle and hindfoot are otherwise unremarkable. CONCLUSION: Soft tissue swelling and bony findings of questionable significance as outlined above Mark Christian MD on October 23, 2017 at 9:34 Board Certified Radiologist. This report was verified electronically.
[2017-10-23] MEDS ORDERED: ACETAMINOPHEN 325 MG TAB PO ONE (10:00)
== END 2017-10-23 10:43 | disposition home or self-care (01) ==
LOC: NEPD 08:32
DX: S82.831A Other fracture of upper and lower end of right fibula, initial encounter for closed fracture (principal); W19.XXXA Unspecified fall, initial encounter
CPT/HCPCS: 29515; 73600; 99283; E0113

== ENCOUNTER 2017-10-24 19:31 | Emergency (ER) | payer MEDICAID ==
[2017-10-24 19:42] VITALS: BP 150/70; PULSE 98; RESP 18; TEMP 99; O2SAT 100
--- NOTE | 2017-10-24 20:11 | PD ---
HPI Chief Complaint: Injury Time Seen by Provider: 19:52 Travel History International Travel<30 days: No Contact w/Intl Traveler<30days: No Traveled to known affect area: No History of Present Illness HPI 32-year-old approximately 5 month female presents to the emergency room for splint replacement. Patient had a Timmons splint placed yesterday for fractured ankle. States throughout the night, her swelling seemed to worsen and was causing her toes to turn blue. She called her [employer] who recommended she remove the splint to allow for more swelling. Patient reports persistent pain to the lateral malleolus. Pain is worsened with range of motion. She has been taking Tylenol. 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) Respiratory: Yes ?: : 6 Para: 7 Miscarriage: 0 : 0 Past Surgical History Abdominal Surgery: Yes Section: Yes (x5) Ear Surgery: No Endocrine Surgery: No Eye Surgery: No Genitourinary Surgery: No Gynecologic Surgery: Yes Insulin Pump: No Pacemaker: No Other Surgery: Yes Social History Alcohol Use: No (PT DENIES ) Tobacco Use: No Substance Use: No (WEEDS) Allergies-Medications (Allergen,Severity, Reaction): Coded Allergies: cefazolin (Verified Allergy, Severe, HIVES, 10/23/17) povidone-iodine (Verified Allergy, Severe, HIVES, 10/23/17) ceftriaxone (Verified Allergy, Intermediate, HIVES, 10/23/17) ciprofloxacin (Verified Allergy, Intermediate, Swelling, 10/23/17) clindamycin (Verified Allergy, Intermediate, Swelling, 10/23/17) iodine (Verified Allergy, Intermediate, HIVES, 10/23/17) potassium iodide (Verified Allergy, Intermediate, HIVES, 10/23/17) sodium iodide (Verified Allergy, Intermediate, RASH, 10/23/17) tramadol (Verified Allergy, Intermediate, RASH/HIVES, 10/23/17) *MDRO Multi-Drug Resistant Organism (Verified Allergy, Unknown, 10/23/17) MRSA prednisone (Verified Adverse Reaction, Intermediate, INCREASED HEART RATE AND BLOOD PRESSURE., 10/23/17) Reported Meds & Prescriptions Reported Meds & Active Scripts Active Flexeril (Cyclobenzaprine HCl) 10 Mg Tab 10 Mg PO TID PRN Ibuprofen 800 Mg Tab 800 Mg PO Q6HR PRN Review of Systems Except as stated in HPI: all other systems reviewed are Neg Physical Exam Narrative GENERAL: Well-nourished, well-developed female no acute distress. Afebrile. SKIN: Focused skin assessment warm/dry. Moderate ecchymosis under the right lateral malleolus. HEAD: Normocephalic. EYES: No scleral icterus. No injection or drainage. NECK: Supple, trachea midline. No JVD or lymphadenopathy. CARDIOVASCULAR: Regular rate and rhythm without murmurs, gallops, or rubs. RESPIRATORY: Breath sounds equal bilaterally. No accessory muscle use. MUSCULOSKELETAL: No cyanosis. Moderate edema of the right lower extremity especially over the lateral malleolus. Limited range of motion secondary to pain. Extreme tenderness to palpation of the lateral malleolus. 2+ dorsalis pedis pulse. Data Data Last Documented VS Vital Signs Date Time Temp Pulse Resp B/P (MAP) Pulse Ox O2 Delivery O2 Flow Rate FiO2 10/24/17 19:42 99.0 98 18 150/70 (96) 100 Orders Orders Splint Or Brace Apply/Monitor (10/24/17 19:57) MDM Medical Decision Making Medical Screen Exam Complete: Yes Emergency Medical Condition: Yes Medical Record Reviewed: Yes Differential Diagnosis Fracture, sprain, strain, contusion Narrative Course 32-year-old female presents to ED requesting splint replacement. She had splint placed yesterday for fractured ankle. States she had to remove it overnight because the swelling got too severe and caused her significant pain. States her toes were turning blue. Physical exam reveals moderate ecchymosis of the right lateral malleolus. Neurovascularly intact with 2+ dorsalis pedis pulse. Limited range of motion secondary to pain and swelling. Moderate edema. Splint was replaced. Patient told to follow-up with Dr. Yeung as planned or return for worsening symptoms. She understands and agrees to plan. Diagnosis Primary Impression: Closed right ankle fracture Qualified Codes: S82.891A - Other fracture of right lower leg, initial encounter for closed fracture Referrals: Primary Care Physician Additional Instructions: Rest and drink plenty of fluids. Take Tylenol as directed, as needed for pain. Apply ice to the affected area for 20 minutes at a time, as needed for pain and swelling. Follow-up with a primary care physician. Return to the emergency room for worsening symptoms. Med/Other Pt SpecificInfo: Prescription(s) given Disposition: 01 DISCHARGE HOME Condition: Stable Kathy Clayton Oct 24, 2017 20:11
== END 2017-10-24 21:15 | disposition home or self-care (01) ==
LOC: NEPK 19:31
DX: S82.891D Other fracture of right lower leg, subsequent encounter for closed fracture with routine healing (principal); M06.9 Rheumatoid arthritis, unspecified; J45.909 Unspecified asthma, uncomplicated; M32.9 Systemic lupus erythematosus, unspecified; X58.XXXD Exposure to other specified factors, subsequent encounter; Z88.5 Allergy status to narcotic agent; Z88.8 Allergy status to other drugs, medicaments and biological substances
CPT/HCPCS: 29515

== ENCOUNTER → 2017-11-14 | Outpatient (CLI) | payer MEDICAID | LOC: HPND 13:13 | PROVIDERS: ATTEND Obstetrics & Gynecology | DX: O09.32 Supervision of pregnancy with insufficient antenatal care, second trimester (principal); O99.89 Other specified diseases and conditions complicating pregnancy, childbirth and the puerperium; M32.9 Systemic lupus erythematosus, unspecified; O99.212 Obesity complicating pregnancy, second trimester; E66.09 Other obesity due to excess calories; Z68.37 Body mass index [BMI] 37.0-37.9, adult | CPT/HCPCS: 76811 ==